=== PATIENT | female | born 1980 | race Caucasian/White ===

== ENCOUNTER 2020-07-20 02:22 | Emergency (ER) | payer SELFPAY ==
[~2020-07-20] VITALS: Ht 157.5 cm; Wt 68.2 kg
[2020-07-20 02:22] VITALS: BP 155/80
[2020-07-20] MEDS ORDERED: ORPH100T PO (02:27)
--- NOTE | 2020-07-20 02:27 | PHYS DOC ---
Past Medical History Past Medical History: No Pertinent History, Hypertension, Other Additional Past Medical Histor: "some kidney problem" Past Surgical History: No Surgical History Smoking Status: Current Every Day Smoker Alcohol Use: Occasionally Drug Use: None General Adult EDM: Chief Complaint: MULTIPLE COMPLAINTS HPI: HPI: Patient is a 40 year old [f__sex] who presents with [] Review of Systems: Review of Systems: Constitutional: Denies fever or chills. [] Eyes: Denies change in visual acuity. [] HENT: Denies nasal congestion or sore throat. [] Respiratory: Denies cough or shortness of breath. [] Cardiovascular: Denies chest pain or edema. [] GI: Denies abdominal pain, nausea, vomiting, bloody stools or diarrhea. [] : Denies dysuria. [] Musculoskeletal: Denies back pain or joint pain. [] Integument: Denies rash. [] Neurologic: Denies headache, focal weakness or sensory changes. [] Endocrine: Denies polyuria or polydipsia. [] Lymphatic: Denies swollen glands. [] Psychiatric: Denies depression or anxiety. [] Heart Score: Risk Factors: Risk Factors: DM, Current or recent (<one month) smoker, HTN, HLP, family history of CAD, obesity. Risk Scores: Score 0 - 3: 2.5% MACE over next 6 weeks - Discharge Home Score 4 - 6: 20.3% MACE over next 6 weeks - Admit for Clinical Observation Score 7 - 10: 72.7% MACE over next 6 weeks - Early Invasive Strategies Allergies: Allergies: Allergies Coded Allergies Type Severity Reaction Last Updated Verified aspirin Allergy Severe Anaphylaxis 06/05/14 Yes naproxen Allergy Severe Anaphylaxis 06/05/14 Yes Physical Exam: PE: Constitutional: Well developed, well nourished, no acute distress, non-toxic appearance. [] HENT: Normocephalic, atraumatic, bilateral external ears normal, oropharynx moist, no oral exudates, nose normal. [] Eyes: PERRLA, EOMI, conjunctiva normal, no discharge. [] Neck: Normal range of motion, no tenderness, supple, no stridor. [] Cardiovascular:Heart rate regular rhythm, no murmur [] Lungs & Thorax: Bilateral breath sounds clear to auscultation [] Abdomen: Bowel sounds normal, soft, no tenderness, no masses, no pulsatile masses. [] Skin: Warm, dry, no erythema, no rash. [] Back: No tenderness, no CVA tenderness. [] Extremities: No tenderness, no cyanosis, no clubbing, ROM intact, no edema. [] Neurologic: Alert and oriented X 3, normal motor function, normal sensory function, no focal deficits noted. [] Psychologic: Affect normal, judgement normal, mood normal. [] EKG: EKG: [] Radiology/Procedures: Radiology/Procedures: [] Course & Med Decision Making: Course & Med Decision Making Pertinent Labs and Imaging studies reviewed. (See chart for details) [] Dragon Disclaimer: Dragon Disclaimer: This electronic medical record was generated, in whole or in part, using a voice recognition dictation system. Departure Departure Impression: Primary Impression: Wrist sprain Qualified Codes: S63.509A - Unspecified sprain of unspecified wrist, initial encounter Additional Impressions: Knee pain, bilateral Qualified Codes: M25.561 - Pain in right knee; M25.562 - Pain in left knee Hand abrasion Qualified Codes: S60.511A - Abrasion of right hand, initial encounter Back pain Qualified Codes: M54.5 - Low back pain Disposition: 01 DC HOME SELF CARE/HOMELESS Condition: STABLE Referrals: MILLY DA SILVA MD (PCP) Patient Instructions: Abrasion, [id number], Back Pain, Adult, [id number], Elastic Bandage and RICE, Knee Pain, [id number], Wrist Sprain with Rehab- [facility] Additional Instructions: ICE areas of discomfort 20 min on then leave off next 20 mins. Repeat several times daily for next few days as needed. Take Tylenol as needed for pain. Scripts Orphenadrine Citrate (ORPHENADRINE CITRATE) 100 Mg Tablet.er 100 MG PO BID PRN for MUSCLE PAIN, #14 TAB Prov: RAMSEY ARRIETA DO 07/20/20 RAMSEY ARRIETA DO Jul 20, 2020 02:27
[2020-07-20] MEDS ORDERED: ORPHENADRINE CITRATE 60 MG/2 ML VIAL. IM ONE (02:30)
[2020-07-20] MEDS ORDERED: NEOMY/BACITR/POLYMYXIN OINT PACKET. TP ONE (02:30)
== END 2020-07-20 02:44 | disposition home or self-care (01) ==
LOC: ER 02:22
DX: S63.501A Unspecified sprain of right wrist, initial encounter (principal); S63.502A Unspecified sprain of left wrist, initial encounter; S60.511A Abrasion of right hand, initial encounter; M25.561 Pain in right knee; M25.562 Pain in left knee; M54.5 Low back pain; I10 Essential (primary) hypertension; F17.200 Nicotine dependence, unspecified, uncomplicated; Z88.5 Allergy status to narcotic agent; Z88.6 Allergy status to analgesic agent; Y04.0XXA Assault by unarmed brawl or fight, initial encounter; Y93.89 Activity, other specified; Y92.89 Other specified places as the place of occurrence of the external cause; Y99.8 Other external cause status
CPT/HCPCS: 96372; 99283; J2360

== ENCOUNTER 2020-12-16 16:11 | Emergency (ER) | payer OTHER ==
[~2020-12-16] VITALS: Ht 157.5 cm; Wt 77.3 kg
[~2020-12-16 16:11] MED LIST: ORPH100T PO
[2020-12-16 17:00] VITALS: BP 133/89
[2020-12-16 17:01] LABS: BILIRUBIN,URINE NEGATIVE (NEG); CLARITY,URINE TURBID; COLOR,URINE YELLOW; NITRITE,URINE NEGATIVE (NEG); PROTEIN,URINE NEGATIVE (NEG-TRACE); UROBILINOGEN,URINE 0.2 mg/dL (0.2 mg/dL)
[2020-12-16 17:09] LABS: BACTERIA,URINE MODERATE /HPF (0-FEW); RBC,URINE 20-40 /HPF (0-2); WBC,URINE >40 /HPF (0-4)
[2020-12-16] MEDS ORDERED: CIPR500T94 PO (17:36)
--- NOTE | 2020-12-16 17:38 | PHYS DOC ---
Past Medical History Past Medical History: Hypertension, Other Additional Past Medical Histor: "some kidney problem" Past Surgical History: No Surgical History Smoking Status: Current Every Day Smoker Alcohol Use: Occasionally Drug Use: None General Adult EDM: Chief Complaint: URINARY FREQUENCY HPI: HPI: Patient is a 40 year old female who presents to the ED today complaining of urgency frequency and dysuria for 3 days. Patient denies any fever. States this is her typical presentation for her UTI Review of Systems: Review of Systems: Constitutional: Denies fever or chills. [] GI: Denies abdominal pain, nausea, vomiting, bloody stools or diarrhea. [] : Reports urgency, frequency and dysuria Musculoskeletal: Denies back pain or joint pain. [] Integument: Denies rash. [] Neurologic: Denies headache, focal weakness or sensory changes. [] Psychiatric: Denies depression or anxiety. [] Heart Score: C/O Chest Pain: N/A Risk Factors: Risk Factors: DM, Current or recent (<one month) smoker, HTN, HLP, family history of CAD, obesity. Risk Scores: Score 0 - 3: 2.5% MACE over next 6 weeks - Discharge Home Score 4 - 6: 20.3% MACE over next 6 weeks - Admit for Clinical Observation Score 7 - 10: 72.7% MACE over next 6 weeks - Early Invasive Strategies Allergies: Allergies: Allergies Coded Allergies Type Severity Reaction Last Updated Verified aspirin Allergy Severe Anaphylaxis 06/05/14 Yes naproxen Allergy Severe Anaphylaxis 06/05/14 Yes Physical Exam: PE: Constitutional: Well developed, well nourished, no acute distress, non-toxic appearance. [] Abdomen: Bowel sounds normal, soft, no tenderness, no masses, no pulsatile masses. [] Skin: Warm, dry, no erythema, no rash. [] Back: No tenderness, no CVA tenderness. [] Extremities: No tenderness, no cyanosis, no clubbing, ROM intact, no edema. [] Neurologic: Alert and oriented X 3, normal motor function, normal sensory function, no focal deficits noted. [] Psychologic: Affect normal, judgement normal, mood normal. [] Current Patient Data: Labs: Laboratory Tests Test 12/16/20 16:13 12/16/20 16:56 Urine Collection Type Unknown Urine Color Yellow Urine Clarity Turbid Urine pH 6.0 (<5.0-8.0) Urine Specific [place] 1.020 (1.000-1.030) Urine Protein Negative mg/dL (NEG-TRACE) Urine Glucose (UA) Negative mg/dL (NEG) Urine Ketones (Stick) Negative mg/dL (NEG) Urine Blood Large (NEG) Urine Nitrite Negative (NEG) Urine Bilirubin Negative (NEG) Urine Urobilinogen Dipstick 0.2 mg/dL (0.2 mg/dL) Urine Leukocyte Esterase Small (NEG) Urine RBC 20-40 /HPF (0-2) Urine WBC >40 /HPF (0-4) Urine Squamous Epithelial Cells Few /LPF Urine Bacteria Moderate /HPF (0-FEW) Urine Mucus Mod /LPF POC Urine HCG, Qualitative Hcg negative (Negative) EKG: EKG: [] Radiology/Procedures: Radiology/Procedures: [] Course & Med Decision Making: Course & Med Decision Making Pertinent Labs and Imaging studies reviewed. (See chart for details) This is a 40-year-old female patient presented to the ED today with urgency frequency dysuria. Positive for UTI, discharged on antibiotics. Follow-up with PCP in 1 to 2 weeks. Abby Disclaimer: [employer] Disclaimer: This electronic medical record was generated, in whole or in part, using a voice recognition dictation system. Departure Departure Impression: Primary Impression: UTI (lower urinary tract infection) Disposition: HOME / SELF CARE / HOMELESS Condition: STABLE Referrals: JIMY BALTAZAR (PCP) follow up in one week Patient Instructions: Urinary Tract Infection Additional Instructions: You have UTI. Please complete your antibiotics. Doyle fluids and follow up with your doctor next week Scripts Ciprofloxacin Hcl (CIPRO) 500 Mg Tablet 1 TAB PO BID for 7 Days, #14 TAB 0 Refills Prov: INGRISXIOMARA FISH MACHINE FEEDER 12/16/20 INGRISXIOMARA Reji FISH MACHINE FEEDER Dec 16, 2020 17:38
== END 2020-12-16 18:04 | disposition home or self-care (01) ==
LOC: ER 16:11
DX: N39.0 Urinary tract infection, site not specified (principal); I10 Essential (primary) hypertension; F17.200 Nicotine dependence, unspecified, uncomplicated; Z88.5 Allergy status to narcotic agent; Z88.6 Allergy status to analgesic agent
CPT/HCPCS: 81001; 81025; 87086; 99283

== ENCOUNTER 2020-12-19 22:23 | Emergency (ER) | payer OTHER ==
[~2020-12-19] VITALS: Ht 157.5 cm; Wt 76.5 kg
[~2020-12-19 22:23] MED LIST changes: +CIPR500T94 PO
--- NOTE | 2020-12-19 23:36 | PHYS DOC ---
Past Medical History Past Medical History: Hypertension, Other Additional Past Medical Histor: "some kidney problem", INTERSTITIAL CYSTITIS Past Surgical History: No Surgical History Smoking Status: Current Every Day Smoker Alcohol Use: Occasionally Drug Use: None General Adult EDM: Chief Complaint: ALLERGIC REACTION HPI: HPI: 40-year-old female presents for evaluation of rash. Patient states she has had rash x3 days it is located on her arms and abdomen. Patient has associated itch and at times feels short of breath. 3 days ago patient was started on Cipro for a urinary tract infection and states shortly after her symptoms started. Patient does states she still has some dysuria. Patient has taken [id number] Benadryl last dose was around noon. Patient is in no respiratory distress. Patient is requesting p.o. medications versus IV medications. Review of Systems: Review of Systems: Constitutional: Denies fever or chills. [] Eyes: Denies change in visual acuity. [] HENT: Denies nasal congestion or sore throat. [] Respiratory: Denies cough or shortness of breath. [] Cardiovascular: Denies chest pain or edema. [] GI: Denies abdominal pain, nausea, vomiting, bloody stools or diarrhea. [] : positive dysuria. [] Musculoskeletal: Denies back pain or joint pain. [] Integument: positive rash. [] Neurologic: Denies headache, focal weakness or sensory changes. [] Endocrine: Denies polyuria or polydipsia. [] Lymphatic: Denies swollen glands. [] Psychiatric: Denies depression or anxiety. [] Heart Score: C/O Chest Pain: N/A Risk Factors: Risk Factors: DM, Current or recent (<one month) smoker, HTN, HLP, family history of CAD, obesity. Risk Scores: Score 0 - 3: 2.5% MACE over next 6 weeks - Discharge Home Score 4 - 6: 20.3% MACE over next 6 weeks - Admit for Clinical Observation Score 7 - 10: 72.7% MACE over next 6 weeks - Early Invasive Strategies Allergies: Allergies: Allergies Coded Allergies Type Severity Reaction Last Updated Verified aspirin Allergy Severe Anaphylaxis 06/05/14 Yes naproxen Allergy Severe Anaphylaxis 06/05/14 Yes Physical Exam: PE: Constitutional: Well developed, well nourished, no acute distress, non-toxic appearance. [] HENT: Normocephalic, atraumatic, bilateral external ears normal, oropharynx moist, no oral exudates, nose normal. [] Eyes: PERRLA, EOMI, conjunctiva normal, no discharge. [] Neck: Normal range of motion, no tenderness, supple, no stridor. [] Cardiovascular:Heart rate regular rhythm, no murmur [] Lungs & Thorax: Bilateral breath sounds clear to auscultation [] Abdomen: Bowel sounds normal, soft, no tenderness, no masses, no pulsatile masses. [] Skin: Warm, dry, no erythema, diffuse hives Back: No tenderness, no CVA tenderness. [] Extremities: No tenderness, no cyanosis, no clubbing, ROM intact, no edema. [] Neurologic: Alert and oriented X 3, normal motor function, normal sensory function, no focal deficits noted. [] Psychologic: Affect normal, judgement normal, mood normal. [] Current Patient Data: Vital Signs: Vital Signs Date Time Temp Pulse Resp B/P (MAP) Pulse Ox O2 Delivery O2 Flow Rate FiO2 12/19/20 22:28 98.2 89 16 128/81 (105) 99 Room Air 98.2 EKG: EKG: [] Radiology/Procedures: Radiology/Procedures: [] Course & Med Decision Making: Course & Med Decision Making Pertinent Labs and Imaging studies reviewed. (See chart for details) [] Patient was treated with Decadron Benadryl and Pepcid. Patient urine was checked without signs of infection. Patient advised she can stop taking the Cipro. Patient advised she can take Benadryl and Pepcid as needed for rash. Abby Disclaimer: Abby Disclaimer: This electronic medical record was generated, in whole or in part, using a voice recognition dictation system. Departure Departure Impression: Primary Impression: Allergic reaction Disposition: HOME / SELF CARE / HOMELESS Condition: STABLE Referrals: JIMY BALTAZAR (PCP) Patient Instructions: Drug Allergy YESI CONNER DO Dec 19, 2020 23:36
[2020-12-19] MEDS ORDERED: diphenhydrAMINE HCL 25 MG CAPSULE PO ONE (23:45)
[2020-12-19] MEDS ORDERED: DEXAMETHASONE 4 MG TABLET PO ONE (23:45)
[2020-12-19] MEDS ORDERED: FAMOTIDINE 20 MG TABLET. PO ONE (23:45)
[2020-12-19 23:47] VITALS: BP 120/55
[2020-12-20 00:23] LABS: BILIRUBIN,URINE NEGATIVE (NEG); CLARITY,URINE CLEAR; COLOR,URINE YELLOW; NITRITE,URINE NEGATIVE (NEG); PH,URINE 5.5 (<5.0-8.0); PROTEIN,URINE NEGATIVE (NEG-TRACE); UROBILINOGEN,URINE 0.2 mg/dL (0.2 mg/dL)
[2020-12-20 00:34] LABS: BACTERIA,URINE 0 /HPF (0-FEW); RBC,URINE 0 /HPF (0-2)
== END 2020-12-20 01:05 | disposition home or self-care (01) ==
LOC: ER 22:23
DX: T78.40XA Allergy, unspecified, initial encounter (principal); I10 Essential (primary) hypertension; F17.200 Nicotine dependence, unspecified, uncomplicated; Z88.5 Allergy status to narcotic agent; Z88.6 Allergy status to analgesic agent
CPT/HCPCS: 81001; 99284; Q0163

== ENCOUNTER 2020-12-24 12:31 | Emergency (ER) | payer OTHER ==
[~2020-12-24] VITALS: Ht 157.5 cm; Wt 72.7 kg
[2020-12-24 14:37] VITALS: BP 163/77
[2020-12-24] MEDS ORDERED: PERM60CR11 TP (14:56)
--- NOTE | 2020-12-24 14:56 | ED.ADGEN ---
Past Medical History Past Medical History: Hypertension, Other Additional Past Medical Histor: "some kidney problem", INTERSTITIAL CYSTITIS Past Surgical History: No Surgical History Smoking Status: Current Every Day Smoker Alcohol Use: Occasionally Drug Use: None General Adult EDM: Chief Complaint: ITCHING HPI: HPI: Patient is a 40 year old female who presents emergency department with complaints of itchy rash to the back of her neck, her umbilicus, and abdominal folds for the last week. Patient reports that the rash is very itchy and it is significantly worse at night. She denies any new foods, detergents, medications, or perfumes. Patient states that she did recently stay with her mom who had moved into a new apartment. Patient reports concerns of having scabies. She denies any fever, cough, wheezing, congestion, shortness of breath, nausea, vomiting, diarrhea, abdominal pain, body aches, or fatigue. Patient denies any alleviating factors. She states at times her symptoms are worse with temperature changes. Review of Systems: Review of Systems: Complete ROS is negative unless otherwise noted in HPI. Allergies: Allergies: Allergies Coded Allergies Type Severity Reaction Last Updated Verified aspirin Allergy Severe Anaphylaxis 06/05/14 Yes naproxen Allergy Severe Anaphylaxis 06/05/14 Yes ciprofloxacin Allergy Unknown POSSIBLE RASH 12/24/20 Yes Physical Exam: PE: See Above Constitutional: Well developed, well nourished, no acute distress, non-toxic appearance. [] HENT: Normocephalic, atraumatic, bilateral external ears normal, nose normal. [] Eyes: PERRLA, EOMI, conjunctiva normal, no discharge. [] Neck: Normal range of motion, no stridor. [] Cardiovascular:Heart rate regular rhythm Lungs & Thorax: Respirations even and unlabored, no retractions, no respiratory distress Skin: Warm, dry; scattered erythemic maculopapular rash to the back of patient's neck, umbilicus, and upper extremities concerning for scabies, will treat as such. Extremities: No cyanosis, ROM intact, no edema. [] Neurologic: Alert and oriented X 3, normal motor, normal sensory, no focal deficits noted. [] Psychologic: Affect normal, judgement normal, mood normal. [] EKG: EKG: [] Heart Score: C/O Chest Pain: No Radiology/Procedures: Radiology/Procedures: [] Course & Med Decision Making: Course & Med Decision Making Pertinent Labs and Imaging studies reviewed. (See chart for details) [] Dragon Disclaimer: Abby Disclaimer: This electronic medical record was generated, in whole or in part, using a voice recognition dictation system. Departure Departure Impression: Primary Impression: Scabies infestation Disposition: HOME / SELF CARE / HOMELESS Condition: STABLE Referrals: JIMY BALTAZAR (PCP) Patient Instructions: Scabies Additional Instructions: Fill the prescription(s) and use as directed, may repeat treatment in one week if needed. Wash all bedding and clothing in hot water clean your living area thoroughly. Follow the instructions provided. Follow up with your primary care doctor if symptoms persist. Return to the ER if symptoms worsen or fever develops. Scripts Permethrin (ELIMITE) 60 Gm Cream..g. 1 JONG TP ONCE, #60 GM 1 Refill massage into skin from head to soles of feet 1x, leave on for 8-14 hours then wash off. May repeat in one week if needed. Prov: LEVI LOPEZ APRN 12/24/20 LEVI LOPEZ APRN Dec 24, 2020 14:56
== END 2020-12-24 15:18 | disposition home or self-care (01) ==
LOC: ER 12:31
DX: B86 Scabies (principal); I10 Essential (primary) hypertension; F17.200 Nicotine dependence, unspecified, uncomplicated; Z88.1 Allergy status to other antibiotic agents; Z88.5 Allergy status to narcotic agent; Z88.6 Allergy status to analgesic agent
CPT/HCPCS: 99282

== ENCOUNTER 2021-09-28 14:52 | Emergency (ER) | payer OTHER ==
[~2021-09-28] VITALS: Ht 157.5 cm; Wt 77.3 kg
[~2021-09-28 14:52] MED LIST changes: +PERM60CR11 TP
[2021-09-28 14:59] VITALS: BP 147/89
--- NOTE | 2021-09-28 15:31 | PHYS DOC ---
Past Medical History Past Medical History: Hypertension, Other Additional Past Medical Histor: "some kidney problem", INTERSTITIAL CYSTITIS Past Surgical History: No Surgical History Smoking Status: Current Every Day Smoker Alcohol Use: Occasionally Drug Use: None General Adult EDM: Chief Complaint: SKIN RASH/ABSCESS HPI: HPI: Patient is a 41-year-old female who presents to the emergency department reporting itching of her extremities and hands stating that she has got scabies. Patient states yesterday she was at a friend's house as well as many animals she was sitting on the couch and noticed a few hours later she started itching, patient states that she has had this happen to her before with similar symptoms and presentation. Patient denies other physical complaints or physical concern s. Patient states her last tetanus immunization less than 5 years ago, last menstrual cycle 3 weeks ago with normal duration of flow. Review of Systems: Review of Systems: 14 body systems of review of systems have been reviewed. See HPI for pertinent positives and negative responses, otherwise all other systems are negative, nonpertinent or noncontributory. Constitutional: Negative except as outlined in HPI above. Skin: Negative except as outlined in HPI above. Eyes: Negative except as outlined in HPI above. HENT: Negative except as outlined in HPI above. Respiratory: Negative except as outlined in HPI above. Cardiovascular: Negative except as outlined in HPI above. GI: Negative except as outlined in HPI above. : Negative except as outlined in HPI above. Musculoskeletal: Negative except as outlined in HPI above. Integument: Negative except as outlined in HPI above. Neurologic: Negative except as outlined in HPI above. Endocrine: Negative except as outlined in HPI above. Lymphatic: Negative except as outlined in HPI above. Psychiatric: Negative except as outlined in HPI above. Heart Score: C/O Chest Pain: No Risk Factors: Risk Factors: DM, Current or recent (<one month) smoker, HTN, HLP, family history of CAD, obesity. Risk Scores: Score 0 - 3: 2.5% MACE over next 6 weeks - Discharge Home Score 4 - 6: 20.3% MACE over next 6 weeks - Admit for Clinical Observation Score 7 - 10: 72.7% MACE over next 6 weeks - Early Invasive Strategies Allergies: Allergies: Allergies Coded Allergies Type Severity Reaction Last Updated Verified aspirin Allergy Severe Anaphylaxis 06/05/14 Yes naproxen Allergy Severe Anaphylaxis 06/05/14 Yes ciprofloxacin Allergy Unknown POSSIBLE RASH 12/24/20 Yes Physical Exam: PE: Constitutional: Well developed, well nourished, no acute distress, non-toxic appearance. 41-year-old female in no apparent distress. HENT: Normocephalic, atraumatic. Eyes: Conjunctiva normal, no discharge. Neck: Normal range of motion, no stridor. Cardiovascular: No cyanosis appreciated, distal cap refill less than 2 seconds. Lungs & Thorax: Patient is in no respiratory distress, no audible adventitious lung sounds appreciated. Abdomen: Nontender, no abnormalities noted. Skin: Warm, dry, no erythema, there is small erythematous papules at webs of fingers, excoriation of forearms, flexor surface of bilateral wrists, bilateral axillary folds. Around sock line of both lower extremities. The head and neck are spared. Back: No tenderness, no deformities. Extremities: No tenderness, no cyanosis, no clubbing, ROM intact, no edema. [] Neurologic: Alert and oriented X 3, normal motor function, normal sensory function, no focal deficits noted. Psychologic: Affect normal, judgement normal, mood normal. Current Patient Data: Vital Signs: Vital Signs Date Time Temp Pulse Resp B/P (MAP) Pulse Ox O2 Delivery O2 Flow Rate FiO2 09/28/21 14:59 98.5 85 18 147/89 (108) 100 Room Air 98.5 EKG: EKG: [] Radiology/Procedures: Radiology/Procedures: [] Course & Med Decision Making: Course & Med Decision Making Pertinent Labs and Imaging studies reviewed. (See chart for details) 41-year-old female, vital signs reviewed, resents emerged from concerning scabi es infestation. Physical examination is consistent with patient's explanation of events. Will treat with permethrin regimen. Discussed treatment with patient, patient states she has done this before and is familiar with medication use, discussed with patient may take Benadryl for itching. Strict follow-up with primary care for ongoing symptoms. Return to emergency department p recautions and concerns were reviewed. Patient gave verbal understanding of and is amenable to ED discharge planning. Discussed with the patient all findings and diagnostic testing as well as the need to follow-up with their primary care provider for further evaluation and treatment or return to the ED if any new or worsening symptoms. Strict return precautions were also discussed at length, the patient voiced understanding and agreement with the discharge planning. The patient was nontoxic in appearance, in no apparent distress, and hemodynamically stable at the time of disposition. Abby Disclaimer: Abby Disclaimer: This electronic medical record was generated, in whole or in part, using a voice recognition dictation system. Departure Departure Impression: Primary Impression: Scabies infestation Disposition: HOME / SELF CARE / HOMELESS Condition: GOOD Referrals: JIMY BALTAZAR (PCP) Patient Instructions: Scabies Additional Instructions: You were seen today in the emergency department for scabies infestation. I have prescribed the medications, please use as directed. Follow-up with your primary care physician for any returning symptoms. Thank you for visiting our Emergency Department. It was a pleasure taking care of you today in the emergency department and we appreciate you trusting us with your care. If any additional problems come up don't hesitate to return to visit us. Please follow up with your primary care provider so they can plan additional care if needed and know about the problem that you had. If symptoms worsen come back to the Emergency Department. Any concerning symptoms that start such as chest pain, shortness of air, weakness or numbness on one side of the body, running high fevers or any other concerning symptoms return to the ER. Scripts Permethrin (PERMETHRIN) 60 Gm Cream..g. 1 JONG TP ONCE for scabies infestation, #60 GM 1 Refill Prov: RAMSEY AWAN APRN 09/28/21 RAMSEY AWAN APRN September 28, 2021 15:31
[2021-09-28] MEDS ORDERED: PERM60CR12 TP (15:52)
[2021-09-28] MEDS ORDERED: diphenhydrAMINE HCL 25 MG CAPSULE PO ONE (16:00)
== END 2021-09-28 16:02 | disposition home or self-care (01) ==
LOC: ER 14:52
DX: B86 Scabies (principal); I10 Essential (primary) hypertension; F17.200 Nicotine dependence, unspecified, uncomplicated
CPT/HCPCS: 99282; Q0163; 99281